=== PATIENT | male | born 1970 | race Caucasian/White ===

== ENCOUNTER → 2019-12-11 | Outpatient (CLI) | payer OTHER ==
[~2019-12-11] VITALS: Ht 180.3 cm; Wt 114.8 kg
[~2019-12-11] MED LIST: ADVIL200 MG PO; ATROVENT I0.2 MG/1 M IH; MUCINEX1200 MG PO
[2019-12-11 08:15] VITALS: BP 118/89; PULSE 81; TEMP 97.7
--- NOTE | 2019-12-11 09:16 | NUR ---
Pt returns to [facility] and this RN accompanying. Pt denies pain or nausea. Pt alert and oriented. Pt requests muffin and juice.
[2019-12-11 09:17] VITALS: BP 122/91; PULSE 84; TEMP 97.7
--- NOTE | 2019-12-11 09:30 | NUR ---
Pt taking food and drink well. No complications voiced.
--- NOTE | 2019-12-11 09:45 | NUR ---
X-ray here for postop chest x-ray.
--- NOTE | 2019-12-11 09:57 | NUR ---
Call from Dr. Toussaint that x-ray is clear and pt may be discharged.
--- NOTE | 2019-12-11 10:10 | NUR ---
Discharge information given to pt. All questions answered to his satisfaction. Handed to him are a thank you card, diagnosis information, discharge information, and two prescriptions.
--- NOTE | 2019-12-11 10:25 | NUR ---
Pt transferred out of hospital via wheelchair. Visit with pt's in Admissions area to discuss discharge information. All questions answered to their satisfaction. Pt transferred out of hospital to waiting private vehicle driven by .
[2019-12-11 12:27] LABS: PLEURAL FLUID RBC 7000 /mm3 (0-0); PLEURAL FLUID WBC 2381 /mm3
[2019-12-11 12:28] LABS: PLEURAL FLUID APPEARANCE TURBID; PLEURAL FLUID COLOR AMBER
[2019-12-11 12:41] LABS: GLUCOSE,PLEURAL FLUID 94 mg/dL; TOTAL PROTEIN,PLEURAL FLUID 5.1 gm/dL
[2019-12-11 17:08] VITALS: BP 118/89; PULSE 81; TEMP 97.7
[2019-12-11 17:29] VITALS: BP 116/85; PULSE 85
== END ==
LOC: SDCO 07:22
PROVIDERS: Internal Medicine Pulmonary Disease
DX: J90 Pleural effusion, not elsewhere classified (principal); G47.30 Sleep apnea, unspecified; Z87.891 Personal history of nicotine dependence; Z20.828 Contact with and (suspected) exposure to other viral communicable diseases

== ENCOUNTER 2020-03-25 07:23 | Outpatient (CLI) | payer OTHER ==
[~2020-03-25] VITALS: Ht 180.3 cm; Wt 51.7 kg
[2020-03-25] MEDS ORDERED: PREDNISONE10 MG PO (08:12)
[2020-03-25] MEDS ORDERED: 00186-0370-20 IH (08:12)
[2020-03-25 08:15] VITALS: BP 117/86; PULSE 79; TEMP 97.3
--- NOTE | 2020-03-25 09:30 | NUR ---
No thoracentesis performed. Follow up appointment for CT scan and PFT's set up in office by physician on Apr 01 @ 330. Pt dresses. He denies wanting anything to drink or eat prior to eating. He reports he is going to get breakfast. He walks out to private vehicle with son driving. Pt has appointment card and belongings.
[2020-03-25 09:52] VITALS: PULSE 82
== END 2020-03-25 09:33 | disposition home or self-care (01) ==
LOC: SDCO 07:23
DX: J90 Pleural effusion, not elsewhere classified (principal); U07.1 COVID-19; J45.30 Mild persistent asthma, uncomplicated; Z87.891 Personal history of nicotine dependence